=== PATIENT | female | born 1965 | race Caucasian/White ===

== ENCOUNTER → 2024-01-29 16:59 | Outpatient (REF) | payer OTHER, SELFPAY | LOC: PAVMRI 16:59 | PROVIDERS: ATTENDING PHYSICIAN Physician Assistant Medical; FAMILY PHYSICIAN Family Medicine | DX: M25.512 Pain in left shoulder (principal) | CPT/HCPCS: 73221 ==

== ENCOUNTER → 2024-12-16 07:32 | Outpatient (REF) | payer OTHER, SELFPAY | LOC: RCS 07:32 | PROVIDERS: ATTENDING PHYSICIAN Anesthesiology; FAMILY PHYSICIAN Family Medicine | DX: Z01.810 Encounter for preprocedural cardiovascular examination (principal) | CPT/HCPCS: 93005 ==

== ENCOUNTER → 2025-03-19 07:48 | Outpatient (REF) | payer OTHER, SELFPAY | LOC: MRI 3T 07:48 | PROVIDERS: ATTENDING PHYSICIAN Physician Assistant Surgical; FAMILY PHYSICIAN Family Medicine | DX: M54.16 Radiculopathy, lumbar region (principal) | CPT/HCPCS: 72148 ==